=== PATIENT | female | born 1990 | race Hispanic/Latino ===

== ENCOUNTER 2021-05-28 04:08 | Emergency (ER) | payer MEDICAID ==
[2021-05-28] MEDS ORDERED: Ketorolac 30 MG/ML SDV IM ONE (04:27)
[2021-05-28 05:01] LABS: CORONAVIRUS COVID-19 NAA NEGATIVE (NEGATIVE); INFLUENZA A NAA NEGATIVE (NEGATIVE); INFLUENZA B NAA NEGATIVE (NEGATIVE)
[2021-05-28 05:05] LABS: BLOOD UREA NITROGEN,BUN 12 mg/dL (7.0-18.0); CARBON DIOXIDE,CO2 26.7 mmol/L (21.0-32.0); CHLORIDE,CL 100 mmol/L (98-107); GLUCOSE RANDOM 168 mg/dL (74-106); POTASSIUM,K 3.9 mmol/L (3.5-5.1); SODIUM,NA 138 mmol/L (136-145)
[2021-05-28 05:28] VITALS: BP 138/71; PULSE 84
== END 2021-05-28 05:28 | disposition home or self-care (01) ==
LOC: MW.ED 04:08
DX: M94.0 Chondrocostal junction syndrome [Tietze] (principal); J06.9 Acute upper respiratory infection, unspecified; Z20.822 Contact with and (suspected) exposure to COVID-19
CPT/HCPCS: 0240U; 36415; 71045; 80048; 85025; 85379; 93005; 96372; 99285; J1885; 93010; 99284

== ENCOUNTER 2021-05-29 18:15 | Emergency (ER) | payer MEDICAID ==
[2021-05-29] MEDS ORDERED: Cyclobenzaprine 10 MG Tab PO ONE (21:51)
[2021-05-29] MEDS ORDERED: Ketorolac 30 MG/ML SDV IM ONE (21:51)
[2021-05-29] MEDS ORDERED: Iopamidol 755 MG/ML 500 ML Multipack Bottle IVPUSH STA (23:29)
[2021-05-29] MEDS ORDERED: Albuterol 8 GM Inhaler INH STA (23:54)
[2021-05-30 00:14] VITALS: BP 111/70; PULSE 92
[2021-05-30] MEDS ORDERED: Dexamethasone 4 MG Tab PO STA (00:18)
== END 2021-05-30 00:27 | disposition home or self-care (01) ==
LOC: MW.ED 18:15
DX: M94.0 Chondrocostal junction syndrome [Tietze] (principal); J06.9 Acute upper respiratory infection, unspecified
CPT/HCPCS: 36415; 71275; 84703; 93005; 96372; 99285; A9270; J1885; J8540; Q9967; 93010; 99284

== ENCOUNTER 2021-09-13 13:47 | Emergency (ER) | payer MEDICAID ==
[2021-09-13 15:18] LABS: CARBON DIOXIDE,CO2 29.4 mmol/L (21.0-32.0); POTASSIUM,K 4.1 mmol/L (3.5-5.1)
[2021-09-13 16:22] LABS: CORONAVIRUS COVID-19 NAA NEGATIVE (NEGATIVE); INFLUENZA A NAA NEGATIVE (NEGATIVE); INFLUENZA B NAA NEGATIVE (NEGATIVE)
[2021-09-14 08:29] VITALS: BP 115/85; PULSE 77
== END 2021-09-13 17:01 | disposition home or self-care (01) ==
LOC: MW.ED 13:47
DX: R07.81 Pleurodynia (principal); Z20.822 Contact with and (suspected) exposure to COVID-19
CPT/HCPCS: 0240U; 36415; 71045; 80053; 84484; 84703; 85025; 85379; 93005; 99285; 93010; 99284

== ENCOUNTER 2021-11-06 03:50 | Emergency (ER) | payer MEDICAID ==
[2021-11-06] MEDS ORDERED: Erythromycin Base 0.5% Ophth Oint 1 GM Tube EYELF STA (04:13)
[2021-11-06] MEDS ORDERED: Ketorolac 30 MG/ML SDV IM STA (04:15)
[2021-11-06 04:40] VITALS: BP 112/76; PULSE 72
== END 2021-11-06 04:25 | disposition home or self-care (01) ==
LOC: MW.ED 03:50
DX: H01.004 Unspecified blepharitis left upper eyelid (principal); R09.1 Pleurisy
CPT/HCPCS: 96372; 99283; A9270; J1885

== ENCOUNTER 2021-11-06 23:16 | Emergency (ER) | payer MEDICAID ==
[2021-11-07 00:15] VITALS: BP 126/90; PULSE 76
[2021-11-07] MEDS ORDERED: Ketorolac 30 MG/ML SDV IM STA (00:25)
== END 2021-11-07 00:40 | disposition home or self-care (01) ==
LOC: MW.ED 23:16
DX: H01.004 Unspecified blepharitis left upper eyelid (principal); Z20.822 Contact with and (suspected) exposure to COVID-19
CPT/HCPCS: 96372; 99283; J1885

== ENCOUNTER 2022-04-15 13:37 | Emergency (ER) | payer MEDICAID ==
[2022-04-15] MEDS ORDERED: Sodium Chloride 0.9% 2.5 ML Syringe FLUSH PRN (13:57)
[2022-04-15] MEDS ORDERED: Sodium Chloride 0.9% 10 ML Syringe FLUSH PRN (13:57)
[2022-04-15] MEDS ORDERED: Ketorolac 30 MG/ML SDV IVPUSH ONE (13:59)
[2022-04-15 14:43] LABS: POTASSIUM,K 3.8 mmol/L (3.5-5.1)
[2022-04-15 14:46] LABS: CORONAVIRUS COVID-19 NAA NEGATIVE (NEGATIVE); INFLUENZA A NAA NEGATIVE (NEGATIVE); INFLUENZA B NAA NEGATIVE (NEGATIVE); RESPIRATORY SYNCYTIAL VIR NAA NEGATIVE (NEGATIVE)
[2022-04-15] MEDS ORDERED: Dexamethasone 10 MG/ML SDV IVPUSH ONE (15:48)
[2022-04-15 16:15] VITALS: BP 127/74; PULSE 67
== END 2022-04-15 16:15 | disposition home or self-care (01) ==
LOC: MW.ED 13:37
DX: J02.9 Acute pharyngitis, unspecified (principal); Z20.822 Contact with and (suspected) exposure to COVID-19
CPT/HCPCS: 0241U; 36415; 71045; 80053; 83735; 84484; 85025; 87651; 93005; 96374; 96375; 99285; J1100; J1885; J3490; 93010; 99284

== ENCOUNTER 2023-01-08 21:51 | Emergency (ER) | payer MEDICAID ==
[2023-01-08] MEDS ORDERED: Acetaminophen/HYDROcodone 325-5 MG Tab PO ONE (22:40)
[2023-01-08 23:08] VITALS: BP 133/65; PULSE 71
== END 2023-01-08 23:08 | disposition home or self-care (01) ==
LOC: MW.ED 21:51
DX: K02.9 Dental caries, unspecified (principal); Z98.890 Other specified postprocedural states
CPT/HCPCS: 99282; A9270; 99283

== ENCOUNTER 2023-01-31 17:30 | Emergency (ER) | payer MEDICAID ==
[2023-01-31 18:02] LABS: APPEARANCE,URINE CLEAR; BILIRUBIN,URINE NEGATIVE (NEGATIVE); COLOR,URINE YELLOW; GLUCOSE,URINE NEGATIVE (NEGATIVE); KETONES,URINE NEGATIVE (NEGATIVE); LEUKOCYTE ESTERASE,URINE NEGATIVE (NEGATIVE); NITRITE,URINE NEGATIVE (NEGATIVE); OCCULT BLOOD,URINE NEGATIVE (NEGATIVE); PH,URINE 6.5 (5.0-8.0); PROTEIN,URINE NEGATIVE (NEGATIVE); UROBILINOGEN,URINE 0.2 EU/dL (<2.0)
[2023-01-31] MEDS ORDERED: Sodium Chloride 0.9% 2.5 ML Syringe FLUSH PRN (18:49)
[2023-01-31] MEDS ORDERED: Sodium Chloride 0.9% 10 ML Syringe FLUSH PRN (18:49)
[2023-01-31] MEDS ORDERED: Ketorolac 30 MG/ML SDV IVPUSH STA (19:01)
[2023-01-31] MEDS ORDERED: Sodium Chloride 0.9% 1,000 ML IV STA (19:01)
[2023-01-31 19:11] LABS: BASOPHILS ABSOLUTE AUTO 0.07 K/uL (0.00-0.20); BASOPHILS PERCENT AUTO 0.4 % (0.0-1.0); EOSINOPHILS PERCENT AUTO 3.1 % (0.0-6.0); HEMATOCRIT 43.7 % (37.0-47.0); HEMOGLOBIN 15.5 g/dL (12.0-16.0); IMMATURE GRAN ABSOLUTE AUTO 0.06 K/uL (0.00-0.05); IMMATURE GRAN PERCENT AUTO 0.4 % (0.0-0.4); LYMPHOCYTES ABSOLUTE AUTO 3.77 K/uL (1.00-4.80); LYMPHOCYTES PERCENT AUTO 23.2 % (24.0-44.0); MEAN CORPUSCULAR HEMOGLOBIN 29.8 pg (28.0-32.0); MEAN CORPUSCULAR HGB CONC 35.5 g/dL (32.0-36.0); MEAN PLATELET VOLUME 8.8 fL (9.4-12.3); MONOCYTES ABSOLUTE AUTO 1.01 K/uL (0.00-0.80); MONOCYTES PERCENT AUTO 6.2 % (0.0-8.0); NEUTROPHILS ABSOLUTE AUTO 10.82 K/uL (1.80-7.70); NEUTROPHILS PERCENT AUTO 66.7 % (41.0-71.0); PLATELET COUNT,PLT 390 K/uL (150-400); WHITE BLOOD CELL COUNT,WBC 16.23 K/uL (3.9-11.3)
[2023-01-31 19:38] LABS: A/G RATIO 0.9 (0.9-1.6); ALBUMIN 4.1 g/dL (3.4-5.0); BILIRUBIN TOTAL 0.5 mg/dL (0.2-1.0); CALCIUM 9.3 mg/dL (8.5-10.1); CARBON DIOXIDE,CO2 29.2 mmol/L (21.0-32.0); CREATININE 0.8 mg/dL (0.6-1.0); EST CRCL DRUG DOSING (CG) 71.84 mL/min; POTASSIUM,K 3.9 mmol/L (3.5-5.1); PROTEIN TOTAL,TP 8.5 g/dL (6.4-8.2)
[2023-01-31] MEDS ORDERED: Iopamidol 755 Mg/ML 100 ML Bottle IVPUSH ONE (19:48)
[2023-01-31] MEDS ORDERED: Morphine 2 MG/ML SYRINGE IVPUSH STA (21:10)
[2023-01-31] MEDS ORDERED: Ondansetron 4 MG/2 ML SDV IVPUSH STA (21:10)
[2023-01-31 21:47] VITALS: BP 117/84; PULSE 90
== END 2023-01-31 21:45 | disposition home or self-care (01) ==
LOC: MW.ED 17:30
DX: K63.89 Other specified diseases of intestine (principal); Z98.890 Other specified postprocedural states
CPT/HCPCS: 36415; 74177; 80053; 81003; 81025; 83690; 85025; 96361; 96374; 96375; 99284; J1885; J2270; J2405; J3490; J7030; Q9967

== ENCOUNTER 2023-05-19 20:36 | Emergency (ER) | payer MEDICAID | END 2023-05-19 21:07 | disposition left against medical advice (07) | LOC: MW.ED 20:36 | DX: Z53.21 Procedure and treatment not carried out due to patient leaving prior to being seen by health care provider (principal) ==

== ENCOUNTER 2024-03-16 19:35 | Emergency (ER) | payer MEDICAID ==
[2024-03-16 20:25] LABS: BASOPHILS ABSOLUTE AUTO 0.07 K/uL (0.00-0.20); BASOPHILS PERCENT AUTO 0.5 % (0.0-1.0); EOSINOPHILS ABSOLUTE AUTO 0.45 K/uL (0.00-0.45); EOSINOPHILS PERCENT AUTO 3.3 % (0.0-6.0); HEMATOCRIT 41.9 % (37.0-47.0); HEMOGLOBIN 14.8 g/dL (12.0-16.0); IMMATURE GRAN ABSOLUTE AUTO 0.04 K/uL (0.00-0.05); IMMATURE GRAN PERCENT AUTO 0.3 % (0.0-0.4); LYMPHOCYTES ABSOLUTE AUTO 3.51 K/uL (1.00-4.80); LYMPHOCYTES PERCENT AUTO 25.9 % (24.0-44.0); MEAN CORPUSCULAR HEMOGLOBIN 29.7 pg (28.0-32.0); MEAN CORPUSCULAR HGB CONC 35.3 g/dL (32.0-36.0); MEAN PLATELET VOLUME 8.9 fL (9.4-12.3); MONOCYTES ABSOLUTE AUTO 0.77 K/uL (0.00-0.80); MONOCYTES PERCENT AUTO 5.7 % (0.0-8.0); NEUTROPHILS PERCENT AUTO 64.3 % (41.0-71.0); PLATELET COUNT,PLT 368 K/uL (150-400); RED BLOOD CELL COUNT 4.99 M/uL (4.10-5.30); WHITE BLOOD CELL COUNT,WBC 13.54 K/uL (3.9-11.3)
[2024-03-16 20:50] LABS: CALCIUM 9.2 mg/dL (8.5-10.1); CARBON DIOXIDE,CO2 31.7 mmol/L (21.0-32.0); CREATININE 0.9 mg/dL (0.6-1.0); EST CRCL DRUG DOSING (CG) 62.67 mL/min; POTASSIUM,K 3.8 mmol/L (3.5-5.1)
[2024-03-16] MEDS: Acetaminophen 325 MG Tab PO ONE (22:22)
[2024-03-16] MEDS: Ketorolac 30 MG/ML SDV IM ONE (22:45)
[2024-03-17 01:42] VITALS: BP 125/78; PULSE 69
== END 2024-03-17 01:41 | disposition home or self-care (01) ==
LOC: MW.ED 19:35
DX: R07.9 Chest pain, unspecified (principal)
CPT/HCPCS: 36415; 71045; 80048; 84484; 85025; 85379; 93005; 96372; 99285; A9270; J1885

== ENCOUNTER 2024-09-14 19:00 | Emergency (ER) | payer SELFPAY ==
[2024-09-14] MEDS ORDERED: Morphine 4 MG/ML Syringe IM ONE (19:31)
[2024-09-14 19:40] LABS: BASOPHILS ABSOLUTE AUTO 0.05 K/uL (0.00-0.20); BASOPHILS PERCENT AUTO 0.5 % (0.0-1.0); EOSINOPHILS ABSOLUTE AUTO 0.53 K/uL (0.00-0.45); EOSINOPHILS PERCENT AUTO 5.3 % (0.0-6.0); HEMATOCRIT 42.3 % (37.0-47.0); HEMOGLOBIN 14.9 g/dL (12.0-16.0); IMMATURE GRAN ABSOLUTE AUTO 0.03 K/uL (0.00-0.05); IMMATURE GRAN PERCENT AUTO 0.3 % (0.0-0.4); LYMPHOCYTES ABSOLUTE AUTO 3.44 K/uL (1.00-4.80); LYMPHOCYTES PERCENT AUTO 34.6 % (24.0-44.0); MEAN CORPUSCULAR HEMOGLOBIN 29.9 pg (28.0-32.0); MEAN CORPUSCULAR HGB CONC 35.2 g/dL (32.0-36.0); MEAN CORPUSCULAR VOLUME 84.8 fL (83.0-99.0); MEAN PLATELET VOLUME 8.6 fL (9.4-12.3); MONOCYTES ABSOLUTE AUTO 0.58 K/uL (0.00-0.80); MONOCYTES PERCENT AUTO 5.8 % (0.0-8.0); NEUTROPHILS PERCENT AUTO 53.5 % (41.0-71.0); PLATELET COUNT,PLT 359 K/uL (150-400); RED BLOOD CELL COUNT 4.99 M/uL (4.10-5.30); WHITE BLOOD CELL COUNT,WBC 9.93 K/uL (3.9-11.3)
[2024-09-14] MEDS: Ketorolac 30 MG/ML SDV IVPUSH ONE (19:48)
[2024-09-14] MEDS: Ondansetron 4 MG/2 ML SDV IVPUSH ONE (19:48)
[2024-09-14] MEDS: Sodium Chloride 0.9% 1,000 ML IV ONE (19:48)
[2024-09-14] MEDS: Morphine 4 MG/ML Syringe IVPUSH ONE (19:54)
[2024-09-14 20:13] LABS: A/G RATIO 1.1 (0.9-1.6); ALANINE AMINOTRANSFERASE,ALT 27 IU/L (14-63); ALBUMIN 3.9 g/dL (3.4-5.0); ALKALINE PHOSPHATASE 70 U/L (46-116); ASPARTATE AMNIOTRANSFERASE,AST 20 IU/L (15-37); BILIRUBIN TOTAL 0.5 mg/dL (0.2-1.0); BLOOD UREA NITROGEN,BUN 17 mg/dL (7.0-18.0); CALCIUM 9.1 mg/dL (8.5-10.1); CARBON DIOXIDE,CO2 31.8 mmol/L (21.0-32.0); CHLORIDE,CL 101 mmol/L (98-107); CREATININE 0.9 mg/dL (0.6-1.0); EST CRCL DRUG DOSING (CG) 75.34 mL/min; GLUCOSE RANDOM 157 mg/dL (74-106); LIPASE 35 U/L (16-77); POTASSIUM,K 3.5 mmol/L (3.5-5.1); PROTEIN TOTAL,TP 7.3 g/dL (6.4-8.2); SODIUM,NA 137 mmol/L (136-145)
[2024-09-14 20:16] LABS: ESTIMATED GFR 86 mL/min (>60); HCG QUANTITATIVE < 1.0 mIU/mL
[2024-09-14 20:52] LABS: APPEARANCE,URINE CLEAR; BILIRUBIN,URINE NEGATIVE (NEGATIVE); COLOR,URINE YELLOW; GLUCOSE,URINE NEGATIVE (NEGATIVE); KETONES,URINE NEGATIVE (NEGATIVE); LEUKOCYTE ESTERASE,URINE NEGATIVE (NEGATIVE); NITRITE,URINE NEGATIVE (NEGATIVE); OCCULT BLOOD,URINE NEGATIVE (NEGATIVE); PROTEIN,URINE NEGATIVE (NEGATIVE); UROBILINOGEN,URINE 0.2 EU/dL (<2.0)
[2024-09-14 21:29] VITALS: BP 145/103; PULSE 74
== END 2024-09-14 21:29 | disposition home or self-care (01) ==
LOC: MW.ED 19:00
DX: R10.11 Right upper quadrant pain (principal); R10.13 Epigastric pain
CPT/HCPCS: 36415; 76705; 80053; 81003; 81025; 83690; 84702; 85025; 96361; 96374; 96375; 99284; J1885; J2270; J2405; J7030; 99283

== ENCOUNTER 2025-02-13 18:22 | Emergency (ER) | payer SELFPAY ==
[2025-02-13] MEDS ORDERED: Sodium Chloride 0.9% 2.5 ML Syringe FLUSH PRN (19:34)
[2025-02-13] MEDS ORDERED: Sodium Chloride 0.9% 10 ML Syringe FLUSH PRN (19:34)
[2025-02-13 19:47] LABS: BASOPHILS ABSOLUTE AUTO 0.07 K/uL (0.00-0.20); BASOPHILS PERCENT AUTO 0.6 % (0.0-1.0); EOSINOPHILS ABSOLUTE AUTO 0.40 K/uL (0.00-0.45); EOSINOPHILS PERCENT AUTO 3.3 % (0.0-6.0); IMMATURE GRAN ABSOLUTE AUTO 0.03 K/uL (0.00-0.05); IMMATURE GRAN PERCENT AUTO 0.2 % (0.0-0.4); LYMPHOCYTES ABSOLUTE AUTO 4.21 K/uL (1.00-4.80); LYMPHOCYTES PERCENT AUTO 34.6 % (24.0-44.0); MEAN PLATELET VOLUME 8.8 fL (9.4-12.3); MONOCYTES ABSOLUTE AUTO 0.73 K/uL (0.00-0.80); MONOCYTES PERCENT AUTO 6.0 % (0.0-8.0); NEUTROPHILS ABSOLUTE AUTO 6.72 K/uL (1.80-7.70); NEUTROPHILS PERCENT AUTO 55.3 % (41.0-71.0); NRBC ABSOLUTE 0.00 K/uL (0.00-0.02); NRBC PERCENT 0.0 /100WBC (0.0-0.2); PLATELET COUNT,PLT 366 K/uL (150-400); RED BLOOD CELL COUNT 5.16 M/uL (4.10-5.30); WHITE BLOOD CELL COUNT,WBC 12.16 K/uL (3.9-11.3)
[2025-02-13 20:11] LABS: A/G RATIO 1.0 (0.9-1.6); ALANINE AMINOTRANSFERASE,ALT 29.0 IU/L (14-63); ASPARTATE AMNIOTRANSFERASE,AST 15.0 IU/L (15-37); BILIRUBIN TOTAL 0.5 mg/dL (0.2-1.0); BLOOD UREA NITROGEN,BUN 11.0 mg/dL (7.0-18.0); CARBON DIOXIDE,CO2 27.2 mmol/L (21.0-32.0); CHLORIDE,CL 103.0 mmol/L (98-107); CREATININE 0.8 mg/dL (0.6-1.0); EST CRCL DRUG DOSING (CG) 70.5 mL/min; ESTIMATED GFR 98.0 mL/min (>60); GLUCOSE RANDOM 118.0 mg/dL (74-106); POTASSIUM,K 3.8 mmol/L (3.5-5.1); PROTEIN TOTAL,TP 8.1 g/dL (6.4-8.2); SODIUM,NA 140.0 mmol/L (136-145)
[2025-02-13 21:19] VITALS: BP 144/99; PULSE 81
[2025-02-13] MEDS: Ketorolac 30 MG/ML SDV IVPUSH ONE (21:35)
== END 2025-02-13 22:22 | disposition home or self-care (01) ==
LOC: MW.ED 18:22
DX: N64.4 Mastodynia (principal); R03.0 Elevated blood-pressure reading, without diagnosis of hypertension; Z86.16 Personal history of COVID-19; Z75.3 Unavailability and inaccessibility of health-care facilities
CPT/HCPCS: 36415; 80053; 81025; 83605; 85025; 86140; 96374; 99284; J1885; 99283